=== PATIENT | female | born 1990 | race Caucasian/White ===

== ENCOUNTER 2018-10-23 03:26 | Emergency (ER) | payer BC ==
--- NOTE | 2018-10-23 03:38 | Emergency Department Record ---
History of Present Illness - General Chief Complaint: Abdominal Pain Stated Complaint: ABDOMINAL PAIN/BLOODY STOOLS Time Seen by Provider: 10/23/18 03:29 Source: Patient Mode of Arrival: Ambulatory Limitations: No limitations - History of Present Illness Initial Comments: 27 yo female presents to ED for evaluation of diffuse abdominal cramping and bright red blood in the stool x 1 that began yesterday at work. Patient denies fevers, chills, vomiting, or urinary symptoms. Patient denies loose stools or history of IBD. Patient denies use of anticoagulation medications at her baseline. Patient denies health problems at her baseline. MD Complaint: Abdominal pain Onset/Timin -: Hour(s) Location: Diffuse Radiation: None Migration to: No migration Severity: Moderate Quality: Cramping Consistency: Intermittent Improves With: Nothing Worsens With: Nothing Associated Symptoms: Hematochezia - Related Data Patient : No Home Medications Medication Instructions Recorded Confirmed Last Taken Alprazolam [Xanax] 0.25 mg PO Q8H PRN 10/23/18 10/23/18 10/23/18 Allergies Allergy/AdvReac Type Severity Reaction Status Date / Time ondansetron [From Zofran] AdvReac RAPID Verified 10/23/18 03:44 HEART RATE Review of Systems Constitutional: Denies: Chills, Fever, Malaise, Night sweats Eyes: Denies: Eye discharge, Eye pain ENT: Denies: Congestion, Ear pain, Epistaxis Respiratory: Denies: Cough, Dyspnea Cardiovascular: Denies: Chest pain, Dyspnea on exertion Endocrine: Denies: Fatigue, Heat or cold intolerance Gastrointestinal: Reports: Abdominal pain, Hematochezia. Denies: Nausea, Vomiting Genitourinary: Denies: Incontinence, Retention Musculoskeletal: Denies: Arthralgia, Back pain Skin: Denies: Bruising, Change in color Neurological: Denies: Abnormal gait, Confusion, Headache, Seizure Psychiatric: Denies: Anxiety Hematological/Lymphatic: Denies: Anemia, Blood Clots Physical Exam - General General Appearance: Alert, Oriented x3, Cooperative, Mild distress Limitations: No limitations - Head Head exam: Atraumatic, Normocephalic, Normal inspection Head exam detail: negative: Abrasion, Contusion, Rvai's sign, General tenderness, Hematoma, Laceration - Eye Eye exam: Normal appearance. negative: Conjunctival injection, Periorbital swelling, Periorbital tenderness, Scleral icterus - ENT Ear exam: negative: Auricular hematoma, Auricular trauma Nasal Exam: negative: Active bleeding, Discharge, Dried blood, Foreign body Mouth exam: negative: Drooling, Laceration, Muffled voice, Tongue elevation - Neck Neck exam: Normal inspection. negative: Meningismus, Tenderness - Respiratory Respiratory exam: Normal lung sounds bilaterally. negative: Rales, Respiratory distress, Rhonchi, Stridor - Cardiovascular Cardiovascular Exam: Regular rate, Normal rhythm, Normal heart sounds - GI/Abdominal GI/Abdominal exam: Soft, Tenderness (Mild TTP RLQ on examination, no rebound, guarding, or peritoneal signs on examination.). negative: Rebound, Rigid - Rectal Rectal exam: Deferred - exam: Deferred - Extremities Extremities exam: Normal inspection. negative: Pedal edema, Tenderness - Back Back exam: Denies: CVA tenderness (R), CVA tenderness (L) - Neurological Neurological exam: Alert, Normal gait, Oriented X3 - Psychiatric Psychiatric exam: Normal affect, Normal mood - Skin Skin exam: Normal color. negative: Abrasion Type of lesion: negative: abrasion Course Vital Signs 10/23/18 03:31 Temperature 98.5 F Pulse Rate [ 79 Pulse Ox Probe] Respiratory 20 Rate Blood Pressure 111/64 [Left Arm] Pulse Ox 97 - Reevaluation(s) Reevaluation #1: 10/23/18 04:16 Laboratory studies were reviewed and appears grossly unremarkable for an acute process. Patient is in CT currently. Reevaluation #2: 10/23/18 05:15 CT Abdomen and Pelvis: No acute inflammatory process IUD in place Small fat-containing umbilical hernia Patient was updated on all results, resting comfortably and reports improvement in her cramping symptoms. Patient appears stable for discharge at this time with instructions to follow-up with her PCP in 2-3 days as directed. Medical Decision Making - Lab Data Result diagrams: 10/23/18 03:38 10/23/18 03:38 Disposition Disposition: Discharge Clinical Impression: Abdominal cramping Disposition: Home, Self-Care Condition: (2) Stable Instructions: Abdominal Pain (ED) Additional Instructions: Return to ED if your symptoms worsen or if you have any concerns. Levsin as directed. Follow-up with your family doctor in 3-5 days as directed. Forms: Patient Portal Access Time of Disposition: 05:16 Quality - Quality Measures Quality Measures: N/A - Blood Pressure Screening Does Patient Have Any of the Following: No Blood Pressure Classification: Normal BP Reading Systolic Measurement: 111 Diastolic Measurement: 64 Screening for High Blood Pressure: < Normal BP, F/U Not Required > [G8783]
[2018-10-23] MEDS ORDERED: HYOSCYAMINE SULFATE ODT 0.125 MG TAB.SUBL SL ONE (03:40)
[2018-10-23] MEDS ORDERED: 0.9 % SODIUM CHLORIDE 1000ML 1,000 ML IV SCH (03:45)
[2018-10-23 03:54] LABS: URINE APPEARANCE CLEAR; URINE BILIRUBIN NEGATIVE (NEGATIVE); URINE BLOOD NEGATIVE (NEGATIVE); URINE COLOR YELLOW; URINE GLUCOSE (UA) NEGATIVE (NEGATIVE); URINE KETONE NEGATIVE (NEGATIVE); URINE LEUKOCYTE ESTERASE NEGATIVE (NEGATIVE); URINE NITRITE NEGATIVE (NEGATIVE); URINE PROTEIN NEGATIVE (NEGATIVE)
[2018-10-23 03:54] LABS: ABSOLUTE NEUTROPHIL COUNT 4.02; BASO % 0.3 % (0-6); EOS % 3.8 % (0-6); HEMATOCRIT 38.8 % (35.0-47.0); HEMOGLOBIN 13.1 gm/dl (11.6-16.0); LYMPH % 32.2 % (16-45); MEAN CORPUSCULAR HEMOGLOBIN 29.4 pg (27-33); MEAN CORPUSCULAR HGB CONC 33.8 g/dl (32-36); MEAN PLATELET VOLUME 9.4 fl (7.4-10.4); MONO % 9.7 % (0-9); PLATELET COUNT 306 K/uL (130-400); RED BLOOD COUNT 4.46 M/uL (3.80-5.40); RED CELL DISTRIBUTION WIDTH 12.2 % (11.5-14.5); WHITE BLOOD COUNT W/O DIFF 7.4 K/uL (4.2-12.2)
[2018-10-23 03:56] LABS: HCG,QUALITATIVE URINE NEGATIVE (NEGATIVE)
[2018-10-23 04:06] LABS: BLOOD UREA NITROGEN 13 mg/dL (6-20)
[2018-10-23 04:07] LABS: EST GLOMERULAR FILTRATION RATE > 60 mL/min; LIPASE 40 U/L (13-60); TOTAL PROTEIN 6.9 g/dL (6.6-8.7)
[2018-10-23 04:09] LABS: GLUCOSE,RANDOM 81 mg/dL (74-109)
[2018-10-23 04:12] LABS: ALB/GLOB RATIO 1.6 (1.1-1.8); ALBUMIN 4.2 g/dL (4.0-5.0); ALKALINE PHOSPHATASE 74 U/L (35-104); ALT/SGPT 12 U/L (<33); AST/SGOT 17 U/L (10.0-35.0)
--- NOTE | 2018-10-24 10:31 | CT SCAN REPORT ---
EXAM: CT OF THE ABDOMEN AND PELVIS WITH CONTRAST HISTORY: PERIUMBILICAL PAIN AND CRAMPING WITH BLOODY STOOLS BEGINNING TWO DAYS AGO. TECHNIQUE: Contrast enhanced helical CT examination of the abdomen and pelvis was performed including delayed images through the kidneys with 100 ml of Omnipaque 300 utilized. Oral contrast was not utilized. Lack of oral contrast utilization limits evaluation of bowel. Comparison: None. FINDINGS: The lung bases are clear with the exception of minimal linear scarring versus atelectasis. No pleural or pericardial effusion. The heart is not enlarged. The liver, spleen, pancreas, adrenal glands, and kidneys are normal in appearance. The gallbladder is contracted limiting its evaluation. No calcified gallstone, gross gallbladder wall thickening or pericholecystic fluid. No biliary ductal dilatation is seen. No intraabdominal nor retroperitoneal lymphadenopathy. The vasculature is normal in appearance. The uterus is retroflexed though normal in size. An intrauterine contraceptive device is in place and appears satisfactory in position. No pelvic mass, lymphadenopathy, or free pelvic fluid. Small follicles are noted within each ovary. No intrinsic urinary bladder abnormality is identified though evaluation is limited by lack of distention. No gross bowel dilatation nor bowel wall thickening. The appendix is visualized and normal in appearance. No ascites nor free intraperitoneal air. A tiny fat filled umbilical hernia is present. No lytic or blastic bone lesion. There are mild degenerative changes scattered within the visualized spine. There is mass like fat density within the right gluteus medius muscle. This measures approximately 2.1 x 1.4 cm. There are no suspicious features. This is consistent with an intramuscular lipoma. IMPRESSION: 1. NO CT EVIDENCE OF AN ACUTE INTRAABDOMINAL NOR INTRAPELVIC PROCESS. 2. RETROFLEXED UTERUS. INTRAUTERINE CONTRACEPTIVE DEVICE IN PLACE APPEARING SATISFACTORY IN POSITION. 3. NORMAL APPENDIX. 4. TINY FAT FILLED UMBILICAL HERNIA. 5. 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 JOB NUMBER: [id number] [facility]
== END 2018-10-23 05:33 | disposition home or self-care (01) ==
LOC: ER 03:26
DX: R10.31 Right lower quadrant pain (principal); K92.1 Melena
CPT/HCPCS: 74177; 80053; 81003; 81025; 83690; 85025; 96360; 99284; J7030

== ENCOUNTER 2019-02-02 07:30 | Emergency (ER) | payer BC ==
[2019-02-02] MEDS ORDERED: 0.9 % SODIUM CHLORIDE 1000ML 1,000 ML IV ONE (07:41)
--- NOTE | 2019-02-02 07:43 | Emergency Department Record ---
History of Present Illness - General Chief Complaint: Difficulty Breathing Stated Complaint: SOB Time Seen by Provider: 02/02/19 07:32 Source: Patient Mode of Arrival: Ambulatory Limitations: No limitations - History of Present Illness Initial Comments: 28 yo female presents with a feeling of heart racing, shakiness, and shortness of breath starting around 6:30am this morning. 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 She had an unremarkable shift. She got home and went to bed when the symptoms started. She feels like her heart is racing, she had two episodes of diarrhea and feels "off". No chest pain. No cough. No underlying heart or lung disease. She is not a smoker. She did have thyroid issues during a . No HRT. No long trips, immobilization or recent surgery. She has had panic attacks in he past. This feels similar. MD Complaint: Shortness of breath Onset/Timin -: Hour(s) Severity: Moderate Quality: Other (no chest pain) Improves With: Nothing Worsens With: Nothing Known History Of: Other (No recent illness) Context: Other Associated Symptoms: Nausea/vomiting Treatments Prior to Arrival: None - Related Data Previous Rx's Medication Instructions Recorded Promethazine HCl [Phenergan] 25 mg PO Q8H #15 tablet 02/02/19 Allergies Allergy/AdvReac Type Severity Reaction Status Date / Time ondansetron [From Zofran] AdvReac RAPID Verified 02/02/19 07:37 HEART RATE Travel Screening - Travel/Exposure Within Last 30 Days Have you traveled within the last 30 days?: No Review of Systems Constitutional: Reports: Weakness. Denies: Chills, Fever, Malaise Eyes: Denies: Eye discharge, Eye pain, Photophobia, Vision change ENT: Denies: Congestion, Ear pain, Throat pain Respiratory: Reports: Dyspnea. Denies: Cough, Hemoptysis, Stridor, Wheezes Cardiovascular: Reports: Palpitations. Denies: Arrhythmia, Chest pain, Dyspnea on exertion, Edema, Syncope Endocrine: Denies: Fatigue, Polydipsia, Polyuria Gastrointestinal: Reports: Diarrhea, Nausea. Denies: Abdominal pain, Constipation, Hematemesis, Hematochezia, Melena, Vomiting Genitourinary: Denies: Dysuria, Hematuria, Urgency Musculoskeletal: Denies: Arthralgia, Back pain, Joint swelling, Myalgia Skin: Denies: Bruising, Change in color, Rash Neurological: Denies: Abnormal gait, Confusion, Headache, Numbness, Seizure, Tingling, Tremors, Vertigo Psychiatric: Reports: Anxiety Hematological/Lymphatic: Denies: Easy bleeding, Easy bruising Past Medical History - SOCIAL HISTORY Smoking Status: Never smoker Drug Use: None - RESPIRATORY Hx Respiratory Disorders: No - CARDIOVASCULAR Hx Cardio Disorders: No - NEURO Hx Neuro Disorders: No - GI Hx GI Disorders: No - Hx Genitourinary Disorders: No - ENDOCRINE Hx Endocrine Disorders: Yes Hx Thyroid Disease: Yes - MUSCULOSKELETAL Hx Musculoskeletal Disorders: No - PSYCH Hx Psych Problems: Yes Hx Anxiety: Yes - HEMATOLOGY/ONCOLOGY Hx Hematology/Oncology Disorders: No Family Medical History Family Hx Comment (NOT TO BE USED IN PLACE OF ITEMS BELOW): Brother - Crohns. Mom-ulcerative colitis, Hasimoto's Hx Cancer: Mother Physical Exam - General General Appearance: Alert, Oriented x3, Cooperative, No acute distress Limitations: No limitations - Head Head exam: Atraumatic, Normal inspection - Eye Eye exam: Normal appearance, PERRL. negative: Conjunctival injection, Scleral icterus Pupils: Normal accommodation - ENT ENT exam: Normal exam, Mucous membranes moist, Normal orophraynx Ear exam: Normal external inspection Nasal Exam: Normal inspection Mouth exam: Normal external inspection Teeth exam: Normal inspection Throat exam: Normal inspection - Neck Neck exam: Normal inspection. negative: Lymphadenopathy, Meningismus, Tenderness - Respiratory Respiratory exam: Normal lung sounds bilaterally. negative: Chest wall tenderness, Prolonged expiratory, Respiratory distress, Rhonchi, Stridor, Wheezes - Cardiovascular Cardiovascular Exam: Regular rate, Normal rhythm, Normal heart sounds Peripheral Pulses: 2+: Radial (R), Radial (L) - GI/Abdominal GI/Abdominal exam: Soft. negative: Tenderness - Rectal Rectal exam: Deferred - exam: Deferred - Extremities Extremities exam: Normal inspection. negative: Pedal edema, Tenderness - Back Back exam: Reports: CVA tenderness (R), CVA tenderness (L) - Neurological Neurological exam: Alert, Oriented X3 - Psychiatric Psychiatric exam: Normal affect, Normal mood. negative: Agitated, Anxious - Skin Skin exam: Dry, Intact, Normal color, Warm Course Vital Signs 02/02/19 07:33 Temperature 98.2 F Pulse Rate 99 H Respiratory 18 Rate Blood Pressure 118/69 Pulse Ox 99 - Reevaluation(s) Reevaluation #1: The vitals were reviewed. No significant abnormalities 02/02/19 07:43 02/02/19 07:43 EKG #1: 07:34 Rate: 89 Rhythm: sinus [place]: normal Intervals: normal ST segments: normal Prior: none 02/02/19 07:44 02/02/19 08:06 The CBC was reviewed. No acute changes. The UA is normal 02/02/19 08:17 The CMP is normal 02/02/19 08:28 TSH is 8.5. The patient was informed of her lab results. No vomiting or diarrhea in the ED 02/02/19 08:35 Nausea is mildly improved. She has had 2 more episodes of diarrhea. Medical Decision Making - Lab Data Result diagrams: 02/02/19 07:40 02/02/19 07:40 Disposition Disposition: Discharge Clinical Impression: Palpitations Diarrhea Qualifiers: Diarrhea type: unspecified type Qualified Code(s): R19.7 - Diarrhea, unspecified Disposition: Home, Self-Care Condition: (1) Good Instructions: Heart Palpitations (ED), Acute Diarrhea (ED) Additional Instructions: Review this ER visit and the tests performed with your family doctor You TSH (Thyroid) test showed a possible low functioning thyroid on your TSH. You will need to discuss this with your doctor. Call your doctor for the next available follow up appointment Return to the ER for a recheck if worse, any new concerns or questions Prescriptions: Promethazine HCl [Phenergan] 25 mg PO Q8H #15 tablet Forms: Patient Portal Access Time of Disposition: 08:29 Quality - Quality Measures Quality Measures: N/A - Blood Pressure Screening Does Patient Have Any of the Following: No Blood Pressure Classification: Normal BP Reading Systolic Measurement: 118 Diastolic Measurement: 69 Screening for High Blood Pressure: < Normal BP, F/U Not Required > [G8783]
[2019-02-02] MEDS ORDERED: PROMETHAZINE HCL 25 MG/ML VIAL IVP ONE (07:49)
[2019-02-02] MEDS ORDERED: DIPHENHYDRAMINE HCL 50 MG/ML VIAL IVP ONE (07:49)
[2019-02-02 07:56] LABS: ABSOLUTE NEUTROPHIL COUNT 4.78; BASO % 0.2 % (0-6); EOS % 4.7 % (0-6); GRAN % 58.2 % (47-80); HEMATOCRIT 40.5 % (35.0-47.0); HEMOGLOBIN 13.6 gm/dl (11.6-16.0); LYMPH % 28.5 % (16-45); MEAN CELL VOLUME 87.7 fl (81-97); MEAN CORPUSCULAR HEMOGLOBIN 29.4 pg (27-33); MEAN CORPUSCULAR HGB CONC 33.6 g/dl (32-36); MEAN PLATELET VOLUME 9.2 fl (7.4-10.4); MONO % 8.4 % (0-9); PLATELET COUNT 284 K/uL (130-400); RED BLOOD COUNT 4.62 M/uL (3.80-5.40); URINE APPEARANCE CLEAR; URINE BILIRUBIN NEGATIVE (NEGATIVE); URINE BLOOD NEGATIVE (NEGATIVE); URINE COLOR YELLOW; URINE GLUCOSE (UA) NEGATIVE (NEGATIVE); URINE KETONE NEGATIVE (NEGATIVE); URINE LEUKOCYTE ESTERASE NEGATIVE (NEGATIVE); URINE NITRITE NEGATIVE (NEGATIVE); URINE PROTEIN NEGATIVE (NEGATIVE); URINE UROBILINOGEN 0.2 E.U./dL (0.20 - 1.00); WHITE BLOOD COUNT W/O DIFF 8.2 K/uL (4.2-12.2)
[2019-02-02 08:00] LABS: HCG,QUALITATIVE URINE NEGATIVE (NEGATIVE)
[2019-02-02 08:06] LABS: BLOOD UREA NITROGEN 12 mg/dL (6-20); CREATININE 0.6 mg/dL (0.5-0.9); EST GLOMERULAR FILTRATION RATE > 60 mL/min
[2019-02-02 08:07] LABS: TOTAL PROTEIN 7.2 g/dL (6.6-8.7)
[2019-02-02 08:09] LABS: GLUCOSE,RANDOM 108 mg/dL (74-109)
[2019-02-02 08:12] LABS: ALB/GLOB RATIO 1.5 (1.1-1.8); ALBUMIN 4.3 g/dL (4.0-5.0); ALKALINE PHOSPHATASE 73 U/L (35-104); ALT/SGPT 10 U/L (<33); AST/SGOT 14 U/L (10.0-35.0)
[2019-02-02 08:23] LABS: THYROID STIMULATING HORMONE 8.54 uIU/mL (0.270-4.20)
== END 2019-02-02 10:08 | disposition home or self-care (01) ==
LOC: ER 07:30
DX: R00.2 Palpitations (principal); R19.7 Diarrhea, unspecified; R11.2 Nausea with vomiting, unspecified; R06.02 Shortness of breath
CPT/HCPCS: 80053; 81003; 81025; 84443; 85025; 93005; 93010; 96361; 96374; 96375; 99284; J1200; J2550; J7030

== ENCOUNTER 2019-02-10 00:19 | Emergency (ER) | payer BC ==
[2019-02-10] MEDS ORDERED: 0.9 % SODIUM CHLORIDE 1000ML 1,000 ML IV SCH (00:30)
--- NOTE | 2019-02-10 00:31 | Emergency Department Record ---
History of Present Illness - General Chief Complaint: Headache Migraine Stated Complaint: HEADACHE,PUPILS UNEQUAL Time Seen by Provider: 02/10/19 00:20 Source: Patient Mode of Arrival: Ambulatory Limitations: No limitations - History of Present Illness Initial Comments: 28 yo female presents to ED for evaluation of mild headache symptoms, was noted to have a dilated pupil left eye. Patient rates her headache symptoms at 4/10, denies blurred vision or change in vision. Patient denies any exposure to mediations that may dilate her eyes, was noted at work to have a dialted left pupil and sent to the ED for evaluation. Patient denies health problems at her baseline. MD Complaint: Headache Onset/Timin -: Days(s) Onset Description: Gradual Location: Diffuse Severity: Moderate Severity scale (1-10): 4 Quality: Throbbing Consistency: Intermittent Improves With: Medication Worsens With: None Treatments Prior to Arrival: Ibuprofen - Related Data Previous Rx's Medication Instructions Recorded Promethazine HCl [Phenergan] 25 mg PO Q8H #15 tablet 02/02/19 Allergies Allergy/AdvReac Type Severity Reaction Status Date / Time ondansetron [From Zofran] AdvReac RAPID Verified 02/10/19 00:36 HEART RATE Review of Systems Constitutional: Denies: Chills, Fever, Malaise, Night sweats Eyes: Denies: Eye discharge, Eye pain, Photophobia, Vision change ENT: Denies: Congestion, Ear pain, Epistaxis Respiratory: Denies: Cough, Dyspnea Cardiovascular: Denies: Chest pain, Dyspnea on exertion Endocrine: Denies: Fatigue, Heat or cold intolerance Gastrointestinal: Denies: Abdominal pain, Constipation, Nausea, Vomiting Genitourinary: Denies: Incontinence, Retention Musculoskeletal: Denies: Arthralgia, Back pain Skin: Denies: Bruising, Change in color Neurological: Reports: Headache. Denies: Abnormal gait, Confusion, Seizure Psychiatric: Denies: Anxiety Hematological/Lymphatic: Denies: Anemia, Blood Clots Past Medical History - SOCIAL HISTORY Smoking Status: Never smoker Drug Use: None - RESPIRATORY Hx Respiratory Disorders: No - CARDIOVASCULAR Hx Cardio Disorders: No - NEURO Hx Neuro Disorders: No - GI Hx GI Disorders: No - Hx Genitourinary Disorders: No - ENDOCRINE Hx Endocrine Disorders: Yes Hx Thyroid Disease: Yes - MUSCULOSKELETAL Hx Musculoskeletal Disorders: No - PSYCH Hx Psych Problems: Yes Hx Anxiety: Yes - HEMATOLOGY/ONCOLOGY Hx Hematology/Oncology Disorders: No Family Medical History Family Hx Comment (NOT TO BE USED IN PLACE OF ITEMS BELOW): Brother - Crohns. M om-ulcerative colitis, Hasimoto's Hx Cancer: Mother Physical Exam - General General Appearance: Alert, Oriented x3, Cooperative, No acute distress Limitations: No limitations - Head Head exam: Atraumatic, Normocephalic, Normal inspection Head exam detail: negative: Abrasion, Contusion, Ravi's sign, General tenderness, Hematoma, Laceration - Eye Eye exam: PERRL, Other (Left pupil 7 mm, right 4 mm, both reactive on examination.). negative: Periorbital swelling, Periorbital tenderness - ENT Ear exam: negative: Auricular hematoma, Auricular trauma Nasal Exam: negative: Active bleeding, Discharge, Dried blood, Foreign body Mouth exam: negative: Drooling, Laceration, Muffled voice, Tongue elevation - Neck Neck exam: Normal inspection. negative: Meningismus, Tenderness - Respiratory Respiratory exam: Normal lung sounds bilaterally. negative: Rales, Respiratory distress, Rhonchi, Stridor - Cardiovascular Cardiovascular Exam: Regular rate, Normal rhythm, Normal heart sounds - GI/Abdominal GI/Abdominal exam: Soft. negative: Rebound, Rigid, Tenderness - Rectal Rectal exam: Deferred - exam: Deferred - Extremities Extremities exam: Normal inspection. negative: Pedal edema, Tenderness - Back Back exam: Denies: CVA tenderness (R), CVA tenderness (L) - Neurological Neurological exam: Alert, CN II-XII intact, Normal gait, Oriented X3. negative: Motor sensory deficit - Psychiatric Psychiatric exam: Normal affect, Normal mood - Skin Skin exam: Normal color. negative: Abrasion Type of lesion: negative: abrasion Course Vital Signs 02/10/19 00:24 Temperature 98.5 F Pulse Rate [ 85 Left] Respiratory 16 Rate Blood Pressure 114/77 [Left] Pulse Ox 99 - Reevaluation(s) Reevaluation #1: 02/10/19 01:18 Laboratory studies were reviewed and appear grossly unremarkable for an acute process. Reevaluation #2: 02/10/19 02:06 CTA Brain: No acute occlusion or or aneurysm identified Chronic sinusitis Patient was updated on all results, no evidence for aneurysm on CTA Patient appears stable for discharge at this time. Medical Decision Making - Lab Data Result diagrams: 02/10/19 00:30 02/10/19 00:30 Disposition Disposition: Discharge Clinical Impression: Headache Qualifiers: Headache type: unspecified Headache chronicity pattern: acute headache Intractability: not intractable Qualified Code(s): R51 - Headache Disposition: Home, Self-Care Condition: (2) Stable Instructions: Acute Headache (ED) Additional Instructions: Return to ED if your symptoms worsen or if you have any concerns. Follow-up with your family doctor in 3-5 days as directed. Forms: Patient Portal Access Time of Disposition: 02:07 Quality - Quality Measures Quality Measures: N/A - Blood Pressure Screening Does Patient Have Any of the Following: No Blood Pressure Classification: Normal BP Reading Systolic Measurement: 114 Diastolic Measurement: 77 Screening for High Blood Pressure: < Normal BP, F/U Not Required > [G8783]
[2019-02-10 00:50] LABS: BASO % 0.2 % (0-6); EOS % 3.3 % (0-6); HEMATOCRIT 40.4 % (35.0-47.0); HEMOGLOBIN 13.6 gm/dl (11.6-16.0); LYMPH % 18.9 % (16-45); MEAN CORPUSCULAR HEMOGLOBIN 29.6 pg (27-33); MEAN CORPUSCULAR HGB CONC 33.7 g/dl (32-36); MEAN PLATELET VOLUME 9.3 fl (7.4-10.4); MONO % 6.6 % (0-9); PLATELET COUNT 316 K/uL (130-400); RED BLOOD COUNT 4.59 M/uL (3.80-5.40); RED CELL DISTRIBUTION WIDTH 12.9 % (11.5-14.5); WHITE BLOOD COUNT W/O DIFF 8.6 K/uL (4.2-12.2)
[2019-02-10 00:56] LABS: BLOOD UREA NITROGEN 14 mg/dL (6-20); CREATININE 0.7 mg/dL (0.5-0.9); EST GLOMERULAR FILTRATION RATE > 60 mL/min
[2019-02-10 00:57] LABS: TOTAL PROTEIN 7.6 g/dL (6.6-8.7)
[2019-02-10 00:59] LABS: GLUCOSE,RANDOM 143 mg/dL (74-109)
[2019-02-10 01:01] LABS: ALB/GLOB RATIO 1.5 (1.1-1.8); ALBUMIN 4.5 g/dL (4.0-5.0); ALT/SGPT 12 U/L (<33); AST/SGOT 18 U/L (10.0-35.0)
[2019-02-10 01:02] LABS: ALKALINE PHOSPHATASE 86 U/L (35-104)
[2019-02-10] MEDS ORDERED: KETOROLAC 30 MG/ML VIAL IVP ONE (01:53)
--- NOTE | 2019-02-10 02:04 | CT ANGIOGRAM REPORT ---
EXAMINATION: HEAD CTA w contrast EXAM DATE: 02/10/2019 1:45 AM TECHNIQUE: CT scanning of the head was performed during the arterial phase of contrast enhancement fo llowing administration of nonionic intravenous contrast (93 mL of Omnipaque 350). Multiple 3-D maximu m intensity projections and 3-D volume rendered images were also provided. INDICATION: 28-year-old female presents with headache and dilated right pupil. HAND DOMINANCE: Unknown. ENCOUNTER: Not applicable. FINDINGS: The petrous, cavernous and supraclinoid segments of the internal carotid arteries are widely patent. The ophthalmic artery origins and proximal arterial main trunks are well visualized and are normal in appearance. Both middle and anterior cerebral arteries and their major branches enhance normally. No evidence for aneurysm or large vessel occlusion involving the anterior circulation. The distal vertebral arteries are well visualized. 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 The basilar artery is widely patent. Both anterior inferior cerebellar arteries and superior cerebel lar arteries are visualized. The posterior cerebral arteries are visualized. There are large bilatera l posterior communicating arteries. No evidence for aneurysm or large vessel occlusion of the posteri or circulation. The major dural venous sinuses are patent. The orbits are normal. The mastoid regions are clear and well aerated. There is mild mucosal thickeni ng in the maxillary sinuses with mucosal thickening in bilateral ethmoid air cells ranging from mild to moderate in degree. There are no fluid levels in the paranasal sinuses. IMPRESSION: 1. Normal CT angiogram of the head. No evidence or aneurysm or large vessel occlusion involving the i ntracranial arterial circulation. 2. Chronic inflammatory change of the maxillary sinuses and ethmoid sinuses. Dictated by: Roger Ramos DO on 02/10/2019 1:48 AM. .
== END 2019-02-10 02:30 | disposition home or self-care (01) ==
LOC: ER 00:19
DX: R51 Headache (principal); J32.8 Other chronic sinusitis; H57.04 Mydriasis
CPT/HCPCS: 70496; 80053; 85025; 96374; 99284; J1885; J7030

== ENCOUNTER 2019-04-12 11:15 | Emergency (ER) | payer BC ==
--- NOTE | 2019-04-12 11:29 | Emergency Department Record ---
History of Present Illness - General Chief complaint: Flu Like Symptoms Stated complaint: FLU SYMPTOMS Time Seen by Provider: 04/12/19 11:24 Source: Patient Mode of Arrival: Ambulatory Limitations: No limitations - History of Present Illness Initial comments: The patient is here due to a 2 day hx of cough, congestion, SOB, fever, body aches and a mild RYAN. She did not get a flu shot this year. MD Complaint: Generalized weakness Onset/Timin -: Days(s) Severity scale (1-10): 2 Associated Symptoms: Fever/chills, Headaches, Shortness of breath - Ivan Coma Scale Eye Response: (4) Open spontaneously Motor Response: (6) Obeys commands Verbal Response: (5) Oriented Ivan Total: 15 - Related Data Home Medications Medication Instructions Recorded Confirmed Last Taken Escitalopram Oxalate [Lexapro] 1 tab PO DAILY 04/12/19 04/12/19 1 Day Ago ~04/11/19 Propranolol HCl 10 mg PO BID 04/12/19 04/12/19 1 Day Ago ~04/11/19 Previous Rx's Medication Instructions Recorded Doxycycline Monohydrate [Mondoxyne 100 mg PO BID 7 Days #14 capsule 04/12/19 Nl] Allergies Allergy/AdvReac Type Severity Reaction Status Date / Time ondansetron [From Zofran] AdvReac RAPID Verified 02/10/19 00:36 HEART RATE Travel Screening - Travel/Exposure Within Last 30 Days Have you traveled within the last 30 days?: No - Travel/Exposure Within Last Year Have you traveled outside the [place] in the last year?: No - Additonal Travel Details Have you been exposed to anyone with a communicable illness?: No - Travel Symptoms Symptom Screening: Fever (Subjective), Headache, Joint & Muscle Aches, Weakness, Fatigue, Diarrhea Review of Systems Constitutional: Reports: Fever, Malaise. Denies: Chills Eyes: Denies: Eye discharge ENT: Reports: Congestion Respiratory: Reports: Cough. Denies: Dyspnea Cardiovascular: Denies: Chest pain Past Medical History - SOCIAL HISTORY Smoking Status: Never smoker Alcohol Use: Rare Drug Use: None - RESPIRATORY Hx Respiratory Disorders: Yes Hx Asthma: Yes - CARDIOVASCULAR Hx Cardio Disorders: No - NEURO Hx Neuro Disorders: Yes Hx Headaches: Yes - GI Hx GI Disorders: No - Hx Genitourinary Disorders: No - ENDOCRINE Hx Endocrine Disorders: Yes Hx Thyroid Disease: Yes Comment:: hypo - MUSCULOSKELETAL Hx Musculoskeletal Disorders: Yes - PSYCH Hx Psych Problems: Yes Hx Anxiety: Yes Hx Behavior Problems: Yes - HEMATOLOGY/ONCOLOGY Hx Hematology/Oncology Disorders: No Family Medical History Any Significant Family History?: Yes Family Hx Comment (NOT TO BE USED IN PLACE OF ITEMS BELOW): Brother - Crohns. Mom-ulcerative colitis, Hasimoto's Hx Cancer: Mother Physical Exam - General General Appearance: Alert, Oriented x3, Cooperative, No acute distress - Head Head exam: Atraumatic, Normocephalic, Normal inspection - Eye Eye exam: Normal appearance, PERRL - ENT ENT exam: Normal exam, Mucous membranes moist, Normal external ear exam, Normal orophraynx, TM's normal bilaterally Throat exam: Normal inspection. negative: Tonsillar erythema, Tonsillar exudate - Neck Neck exam: Normal inspection, Full ROM. negative: Lymphadenopathy, Meningismus, Tenderness - Respiratory Respiratory exam: Normal lung sounds bilaterally. negative: Respiratory distress - Cardiovascular Cardiovascular Exam: Regular rate, Normal rhythm, Normal heart sounds - GI/Abdominal GI/Abdominal exam: Soft, Normal bowel sounds. negative: Tenderness - Extremities Extremities exam: Normal inspection, Full ROM, Normal capillary refill. negative: Tenderness - Neurological Neurological exam: Alert, Normal gait. negative: Abnormal gait, Motor sensory deficit - Skin Skin exam: negative: Rash Course Vital Signs 04/12/19 11:17 Temperature 98.3 F Pulse Rate 99 H Respiratory 20 Rate Blood Pressure 122/72 Pulse Ox 97 - Reevaluation(s) Reevaluation #1: I did discuss the neg FLu and positive CXR with the patient. She is to take the Doxycycline as directed and take 2 days off work. She is to see her PCP later this week if not better and return to the ER for any worsening issues. 04/12/19 11:58 Medical Decision Making - Data Complexity MDM Data: Labs Ordered and/or Reviewed (Flu; Neg), X-Ray Ordered and/or Reviewed - Radiology Data Radiology results: Report reviewed (CXR: L sided infiltrate.) Disposition Disposition: Discharge Clinical Impression: Pneumonia Qualifiers: Pneumonia type: due to unspecified organism Laterality: left Lung location: unspecified part of lung Qualified Code(s): J18.9 - Pneumonia, unspecified organism Disposition: Home, Self-Care Condition: (2) Stable Instructions: Pneumonia (ED) Additional Instructions: Please use Tylenol or Motrin for fever and body aches and rest with lost of oral fluids. Take 2 days off work and please see your family doctor this week if not better. Return to the ER for any worsening issues. Prescriptions: Doxycycline Monohydrate [Mondoxyne Nl] 100 mg PO BID 7 Days #14 capsule Forms: Patient Portal Access Time of Disposition: 12:00 Quality - Quality Measures Quality Measures: N/A - Blood Pressure Screening View Details: Yes Does Patient Have Any of the Following: No Blood Pressure Classification: Pre-Hypertensive BP Reading Systolic Measurement: 122 Diastolic Measurement: 72 Screening for High Blood Pressure: < Pre-Hypertensive BP, F/U Documented > [G8950] Pre-Hypertensive Follow-up Interventions: Referral to alternative/primary care provider.
[2019-04-12 11:46] LABS: INFLUENZA A NEGATIVE (NEGATIVE); INFLUENZA B NEGATIVE (NEGATIVE)
[2019-04-12] MEDS ORDERED: DOXYCYCLINE HYCLATE 100 MG CAPSULE PO ONE (11:53)
--- NOTE | 2019-04-12 12:51 | RADIOLOGY REPORT ---
EXAMINATION: Two View Chest Radiographs EXAM DATE: 04/12/2019 11:53 AM TECHNIQUE: Frontal and lateral views INDICATION: cough COMPARISON: None ENCOUNTER: Not applicable FINDINGS: The heart, mediastinum, and pulmonary vasculature are normal. Infiltrate in the left midlung. No para pneumonic effusion.. IMPRESSION: Infiltrate in the left midlung. No parapneumonic effusion. Dictated by: Julissa Kee MD on 04/12/2019 12:48 PM. .
== END 2019-04-12 12:10 | disposition home or self-care (01) ==
LOC: ER 11:15
DX: J18.9 Pneumonia, unspecified organism (principal); R51 Headache; R06.02 Shortness of breath
CPT/HCPCS: 71046; 87400; 99284

== ENCOUNTER 2019-05-24 15:47 | Emergency (ER) | payer BC ==
[2019-05-24] MEDS: 0.9 % SODIUM CHLORIDE 1,000 ML BAG IV ONE ×2 (16:32→17:28)
--- NOTE | 2019-05-24 16:32 | Emergency Department Record ---
History of Present Illness - General Chief complaint: Nausea, Vomiting, Diarrhea Stated complaint: DIARRHEA Time Seen by Provider: 05/24/19 16:28 Source: Patient Mode of Arrival: Ambulatory Limitations: No limitations - History of Present Illness Initial comments: Pt presents ot the ED from home with 4 days of N/V/D. Started after her 1 year old child had the same. Diarrhea was the initial symptom followed by vomiting. No fever. No AP. No blood in diarrhea. No travel or new meds/foods. Pt has IUD and denies . Feels light headed today. Onset/Timin -: Days(s) Description of Diarrhea: Water Associated Abdominal Pain: Yes Location: Diffuse Quality: Cramping Consistency: Intermittent Improves with: None Worsens with: None Associated Symptoms: Fever/chills, Loss of appetite, Malaise, Nausea/vomiting - Related Data Allergies Allergy/AdvReac Type Severity Reaction Status Date / Time ondansetron [From Zofran] AdvReac RAPID Verified 02/10/19 00:36 HEART RATE Travel/Exposure Screening - Travel/Exposure Within Last 30 Days Have you traveled within the last 30 days?: No - Additonal Travel/Exposure Details Have you been exposed to anyone with a communicable illness?: No Review of Systems Constitutional: Denies: Chills, Fever, Night sweats Eyes: Denies: Eye pain, Photophobia ENT: Denies: Congestion, Throat pain Respiratory: Denies: Cough Cardiovascular: Denies: Chest pain, Syncope Endocrine: Reports: Fatigue Gastrointestinal: Reports: As per HPI, Diarrhea, Nausea, Vomiting. Denies: Abdominal pain, Hematemesis, Hematochezia Genitourinary: Denies: Abnormal menses Musculoskeletal: Denies: Back pain Skin: Denies: Rash Neurological: Denies: Headache, Tingling Psychiatric: Denies: Anxiety Hematological/Lymphatic: Denies: Anemia Past Medical History - SOCIAL HISTORY Smoking Status: Former smoker Alcohol Use: None Drug Use: None - RESPIRATORY Hx Respiratory Disorders: Yes Hx Asthma: Yes - CARDIOVASCULAR Hx Cardio Disorders: No - NEURO Hx Neuro Disorders: Yes Hx Headaches: Yes - GI Hx GI Disorders: No - Hx Genitourinary Disorders: No - ENDOCRINE Hx Endocrine Disorders: Yes Hx Thyroid Disease: Yes Comment:: hypo - MUSCULOSKELETAL Hx Musculoskeletal Disorders: Yes - PSYCH Hx Psych Problems: Yes Hx Anxiety: Yes Hx Behavior Problems: Yes - HEMATOLOGY/ONCOLOGY Hx Hematology/Oncology Disorders: No Family Medical History Any Significant Family History?: Yes Family Hx Comment (NOT TO BE USED IN PLACE OF ITEMS BELOW): Brother - Crohns. Mom-ulcerative colitis, Hasimoto's Hx Cancer: Mother Physical Exam - General General Appearance: Alert, Oriented x3, Cooperative, Mild distress - Head Head exam: Atraumatic, Normocephalic - Eye Eye exam: Normal appearance, PERRL - ENT ENT exam: Mucous membranes dry, Normal external ear exam, Normal orophraynx, TM's normal bilaterally - Neck Neck exam: Normal inspection, Full ROM. negative: Tenderness - Respiratory Respiratory exam: Normal lung sounds bilaterally. negative: Rhonchi - Cardiovascular Cardiovascular Exam: Regular rate, Normal rhythm. negative: Tachycardia Peripheral Pulses: 2+: Radial (R), Radial (L) - GI/Abdominal GI/Abdominal exam: Soft, Normal bowel sounds. negative: Distended, Rebound, Tenderness - Rectal Rectal exam: Deferred - exam: Deferred - Extremities Extremities exam: Normal inspection - Back Back exam: Reports: Normal inspection. Denies: Vertebral tenderness - Neurological Neurological exam: Alert, Normal gait, Oriented X3 - Psychiatric Psychiatric exam: Normal affect, Normal mood - Skin Skin exam: Normal color. negative: Rash Course Vital Signs 05/24/19 16:05 Temperature 98.5 F Pulse Rate [ 64 Pulse Ox Probe] Respiratory 18 Rate Blood Pressure 106/64 [Left Arm] Pulse Ox 99 - Reevaluation(s) Reevaluation #1: 05/24/19 16:32 IV fluids. Reevaluation #2: 05/24/19 17:57 Improved with fluids. Up to restroom. We discussed plan. She has no nausea now. Tolerating oral fluids. Wants to go to work tonight. Disposition Disposition: Discharge Clinical Impression: Dehydration, Vomiting Diarrhea Qualifiers: Diarrhea type: unspecified type Qualified Code(s): R19.7 - Diarrhea, unspecified Disposition: Home, Self-Care Condition: (2) Stable Instructions: Dehydration (ED), Acute Nausea and Vomiting (ED), Acute Diarrhea (ED) Additional Instructions: Clear liquid diet for 24 hours then advance as tolerate. Family Doctor recheck in 2 days Return to the ED as needed. Forms: Patient Portal Access Time of Disposition: 18:02 Quality - Quality Measures Quality Measures: N/A - Blood Pressure Screening Does Patient Have Any of the Following: No Blood Pressure Classification: Normal BP Reading Systolic Measurement: 107 Diastolic Measurement: 66 Screening for High Blood Pressure: < Normal BP, F/U Not Required > [G8783]
[2019-05-24 18:01] LABS: URINE APPEARANCE CLOUDY; URINE BILIRUBIN NEGATIVE (NEGATIVE); URINE BLOOD NEGATIVE (NEGATIVE); URINE COLOR YELLOW; URINE GLUCOSE (UA) NEGATIVE (NEGATIVE); URINE KETONE NEGATIVE (NEGATIVE); URINE LEUKOCYTE ESTERASE NEGATIVE (NEGATIVE); URINE NITRITE NEGATIVE (NEGATIVE); URINE PROTEIN NEGATIVE (NEGATIVE); URINE UROBILINOGEN 0.2 E.U./dL (0.20 - 1.00)
[2019-05-24 18:02] LABS: HCG,QUALITATIVE URINE NEGATIVE (NEGATIVE)
== END 2019-05-24 18:18 | disposition home or self-care (01) ==
LOC: ER 15:47
DX: E86.0 Dehydration (principal); R19.7 Diarrhea, unspecified; R11.2 Nausea with vomiting, unspecified; Z87.891 Personal history of nicotine dependence
CPT/HCPCS: 81003; 81025; 96360; 99284; J7030